=== PATIENT | female | born 1990 | race Caucasian/White ===

== ENCOUNTER 2018-10-06 10:55 | Emergency (ER) | payer MEDICAID ==
[~2018-10-06] VITALS: Ht 157.5 cm; Wt 68.4 kg
[~2018-10-06 10:55] MED LIST: IBUP-1222 PO; OXYC-302 PO
[2018-10-06] MEDS ORDERED: KETOROLAC 30 MG/1 ML ONE (11:19)
[2018-10-06] MEDS ORDERED: KETOROLAC 30 MG/1 ML IM ONE (11:30)
[2018-10-06 11:43] LABS: BASOPHILS % (AUTO) 2 % (0-1); EOSINOPHILS # (AUTO) 0.06 x10^3/uL (0-0.4); EOSINOPHILS % (AUTO) 1 % (1-7); LYMPHOCYTES # (AUTO) 1.65 x10^3/uL (1-3.4); LYMPHOCYTES % (AUTO) 29 % (22-44); MD NO; MEAN CORPUSCULAR HEMOGLOBIN 29.5 pg (27.0-34.8); MEAN CORPUSCULAR HGB CONC 34.4 g/dL (32.4-35.8); MEAN CORPUSCULAR VOLUME 85.6 fL (80-100); MEAN PLATELET VOLUME 7.8 fL (7.4-10.4); MONOCYTES # (AUTO) 0.39 x10^3/uL (0.2-0.8); MONOCYTES % (AUTO) 7 % (2-9); NEUTROPHILS # (AUTO) 3.46 x10^3/uL (1.8-6.8); NEUTROPHILS % (AUTO) 61 % (42-75); PLATELET COUNT 292 x10^3/uL (130-400); RED BLOOD COUNT 4.41 x10^6/uL (3.82-5.3); RED CELL DISTRIBUTION WIDTH 12.8 % (9.6-15.2)
[2018-10-06 11:54] LABS: ALBUMIN 4.3 g/dL (3.4-5.0); ANION GAP 8 mmol/L (5-15); CHLORIDE 109 mmol/L (98-107); CREATININE 0.68 mg/dL (0.55-1.02)
[2018-10-06 12:52] VITALS: BP 116/72
[2018-10-06 13:22] LABS: MICROSCOPIC INDICATED
[2018-10-06 13:51] LABS: CULTURE INDICATED? NO
== END 2018-10-06 14:08 | disposition home or self-care (01) ==
LOC: ED 12:16
DX: N92.4 Excessive bleeding in the premenopausal period (principal); N93.9 Abnormal uterine and vaginal bleeding, unspecified
CPT/HCPCS: 36415; 76830; 80048; 81001; 82040; 84703; 85025; 96372; 99284; J1885